=== PATIENT | female | born 1970 | race American Indian/Alaskan Native ===

== ENCOUNTER 2018-12-07 13:41 | Outpatient (CLI) | payer BC ==
--- NOTE | 2018-12-07 14:47 | Mammography Report ---
LEFT DIGITAL DIAGNOSTIC MAMMOGRAM with CAD and LEFT BREAST ULTRASOUND: 12/07/18 CLINICAL: Left palpable breast lump. COMPARISON:06/02/18 mammogram from [facility] FINDINGS: The breast is heterogeneously dense, which may obscure small masses.No mass, architectural distortion or suspicious calcifications . No mammographic finding at a palpable marker at 1 o'clock approximately 6 cm from the nipple. Ultrasound of the left breast was performed from 10 o'clock to 1 o'clock and demonstrated normal fibroglandular structures. No mass, cyst or shadowing. IMPRESSION: Negative mammogram and negative left breast ultrasound. BI-RADS CATEGORY: 1 - - Negative RECOMMENDATION: Clinical follow-up of the palpable area and routine mammographic screening. COMMENT: 1. Dense breast tissue, i.e., adenosis, fibrocystic changes, etc., may obscure an underlying neoplasm. 2. Approximately 10% of cancers are not detected with mammography. 3. A negative mammography report should not delay biopsy if a clinically suspicious mass is present. COMMENT: Patient follow-up letters are generated by our [employer] application.
== END 2018-12-07 13:42 | disposition home or self-care (01) ==
LOC: SPVWC 13:41
PROVIDERS: ATTEND Surgery
DX: N63.22 Unspecified lump in the left breast, upper inner quadrant (principal)

== ENCOUNTER 2019-12-15 10:09 | Outpatient (CLI) | payer BC ==
--- NOTE | 2019-12-15 11:56 | Mammography Report ---
DIGITAL SCREENING MAMMOGRAM WITH CAD, 12/15/2019 INDICATION: Routine screening mammography. TECHNIQUE: Digital bilateral 2D mammography was obtained in the craniocaudal and mediolateral obliq ue projections. This examination was interpreted with the benefit of Computer-Aided Detection analysi s. COMPARISON: Prior mammograms 12/07/2018, 06/02/2018, and 01/31/2014 FINDINGS: Breast Density: The breasts are heterogeneously dense, which may obscure small masses. There is no evidence of dominant mass, suspicious calcifications or architectural distortion in the l eft breast. There is a 10 mm oval mass seen in the slightly medial right breast, middle to posterior depth, best seen on the cc view. This is partially obscured on the MLO view but likely in the superio r breast, most likely in the 1:00 position. IMPRESSION: 1. An oval mass in the right breast requires further evaluation with targeted ultrasound and addition al views if needed. Follow up recommendation: Ultrasound Category 0: Incomplete. Needs additional imaging evaluation and/or prior mammograms for comparison. A "normal" or negative report should not discourage follow up or biopsy of a clinically significant f inding. A written summary of these findings will be mailed to the patient. The patient will be entered into a mammography reporting system which will generate a reminder letter for the patient's next appointmen t at the appropriate interval. The [employer] recommends yearly mammograms starting at age 40 and continuing as l ad as a woman is in good health. Breast MRI is recommended for women with an approximate 20-25% or greater lifetime risk of breast cancer, including women with a strong family history of breast or ova ivon cancer or who have been treated for Hodgkin's disease. Signer Name: Julianna Zamora MD Signed: 12/15/2019 11:51 AM Workstation Name: [id number]
== END 2019-12-15 10:10 | disposition home or self-care (01) ==
LOC: SPVWC 10:09
PROVIDERS: ATTEND Obstetrics & Gynecology
DX: N63.10 Unspecified lump in the right breast, unspecified quadrant (principal)
CPT/HCPCS: 77067

== ENCOUNTER 2020-11-07 15:42 | Outpatient (CLI) | payer BC ==
--- NOTE | 2020-11-07 16:43 | Ultrasound Report ---
ULTRASOUND BREAST RIGHT LIMITED, 11/07/2020 CLINICAL INFORMATION / INDICATION: UNSPECIFIED LUMP IN BREAST. Patient presents for short interval fo llow-up of a probably benign mass in the right breast. TECHNIQUE: Targeted ultrasound evaluation was performed of the area of interest. COMPARISON: Prior mammogram 12/15/2019 and right breast ultrasound 02/16/2020 FINDINGS: There is a stable oval circumscribed hypoechoic mass in the right breast 1:00 position located 7 cm f rom the nipple, currently measuring up to 8 x 5 x 8 mm, previously 8 x 6 x 7 mm. IMPRESSION: 1. An oval circumscribed hypoechoic mass in the right breast is unchanged from prior examination and remains probably benign. Recommend right breast ultrasound in 6 months to ensure ongoing stability. O f note, patient will be due for bilateral mammogram in one month. Follow up recommendation: Short term follow up in 6 months. BI-RADS Category 3: Probably Benign. Followup in 6 months. A normal or "negative" report should not preclude biopsy or follow-up of a clinically suspicious find ing. Signer Name: Julianna Zamora MD Signed: 11/07/2020 4:38 PM Workstation Name: [id number]
== END 2020-11-07 15:43 | disposition home or self-care (01) ==
LOC: SPVWC 15:42
PROVIDERS: ATTEND Obstetrics & Gynecology
DX: N63.12 Unspecified lump in the right breast, upper inner quadrant (principal)

== ENCOUNTER 2021-03-11 08:02 | Outpatient (CLI) | payer BC ==
--- NOTE | 2021-03-11 10:46 | Mammography Report ---
DIGITAL SCREENING MAMMOGRAM WITH CAD, 03/11/2021 CLINICAL INFORMATION / INDICATION: Routine screening mammography. TECHNIQUE: Digital bilateral 2D mammography was obtained in the craniocaudal and mediolateral obliqu e projections. This examination was interpreted with the benefit of Computer-Aided Detection analysis . COMPARISON: 12/15/2019, 12/07/2018, 06/02/2018 FINDINGS: Breast Density: The breasts are heterogeneously dense, which may obscure small masses. No dominant mass, suspicious calcifications, or architectural distortion in either breast. Circumscribed nodular density in the right breast is again noted and appears unchanged. IMPRESSION: No mammographic evidence of malignancy. Follow up recommendation: Routine yearly BI-RADS Category 2: Benign. A "normal" or negative report should not discourage follow up or biopsy of a clinically significant f inding. A written summary of these findings will be mailed to the patient. The patient will be entered into a mammography reporting system which will generate a reminder letter for the patient's next appointmen t at the appropriate interval. The [employer] recommends yearly mammograms starting at age 40 and continuing as l ad as a woman is in good health. Breast MRI is recommended for women with an approximate 20-25% or greater lifetime risk of breast cancer, including women with a strong family history of breast or ova ivon cancer or who have been treated for Hodgkin's disease. Signer Name: Keila Hu MD Signed: 03/11/2021 10:42 AM Workstation Name: [id number]
== END 2021-03-11 08:03 | disposition home or self-care (01) ==
LOC: SPVWC 08:02
PROVIDERS: ATTEND Obstetrics & Gynecology
DX: Z12.31 Encounter for screening mammogram for malignant neoplasm of breast (principal); N63.10 Unspecified lump in the right breast, unspecified quadrant
CPT/HCPCS: 77067